=== PATIENT | male | born 1985 | race Two or more races ===

== ENCOUNTER 2023-02-13 09:23 | Outpatient (AMB) | payer MEDICAID, SELFPAY ==
--- NOTE | 2023-02-13 09:48 | A.OFFVIS_ITS ---
Intake Vital Signs 02/13/23 09:51 Height 5 ft 7 in Weight 253 lb BMI 39.6 BP 128/72 Blood Pressure Location Lt brachial Position Sitting Pulse 74 Pulse Source Pulse Oximeter Pulse Oximetry (%) 98 Oxygen Delivery Method Room Air Intake Visit Reasons: [employer]: R/O VETO - Confirmed Intake Note: NPV for VETO Chart Computer Required: No Allergies No Known Allergies Allergy (Verified 02/13/23 09:48) HPI HPI Comments History of Present Illness Details 37 y/o male patient presents with his wi fe for new in-person visit for sleep consultation. Pt reports snoring and gasping arousals. He has difficulty falling asleep and staying sleep. He wakes up very frequently, wakes up about 10 times or more throughout the night. Pt had a in lab sleep study done when he was a teenager, but he did not follow up the result . He does not have routine sleep schedule, watching TV until he gets tired. He also vapes, 3000 puffs for 5 days. He gained more than 100 lb since the last sleep study (It was 20 years ago). Sleep questionnaire: Have you ever been diagnosed with a sleep disorder? No. Have you ever had a sleep study in the past? In lab sleep study when he was a teenager but can't remember the result. He did not follow up. Have you ever been treated for a sleep disorder? No. Do you take medications for a sleep disorder? Melatonin occaionally. Do you snore? Yes. Do you wake up gasping at night? Yes, Do you have episodes of apneas? Yes. If yes, are they witnessed? Yes, by his . Do you have episodes of nocturnal chest pain or dyspnea? Yes. Do you have difficulty initiating sleep? Yes. Do you have difficulty maintaining sleep? Yes. Do you wake up tired? Yes. Do you have headaches upon awakening? No. Do you wake up with dry mouth or throat? Yes Do you have GERD? Yes. Do you have nocturia? Yes. Do you have nocturnal leg cramps? No. Do you have symptoms of restless legs? Yes. Do you act out your dreams? Yes, fights in his dream. Sleep hygiene questionnaire: What is your usual sleep routine? Usual bedtime is at N/A. ; Usual wake up time is at 7 am. Do you take naps? Yes. Is your sleep environment cool, dark, and quiet? Yes. Do you exercise? Yes. Do you take caffeine or other stimulants? No. Do you use electronics in bed? Yes, watches TV until he gets tired. What is your work schedule? N/A Hypersomnolence questionnaire: Do you have daytime tiredness or fatigue? Yes. Do you easily fall asleep when inactive? Yes. Have you ever had episodes of sudden weakness? No. Have you ever had episodes of sudden weakness associated with strong emotions? No. PFSH Social History (Updated 02/13/23 @ 09:51 by Yu Kendall CMA) Alcohol intake: current Tobacco use type: Smokeless Tobacco Review of Systems Const All systems reviewed & are unremarkable except as noted in HPI and below ENT Reports Normal hearing present Neuro Reports Normal hearing present Physical Exam Vital Signs: Last Vital Signs Pulse 74 02/13/23 09:51 BP 128/72 02/13/23 09:51 Pulse Ox 98 02/13/23 09:51 Oxygen Delivery Method Room Air 02/13/23 09:51 BMI result Body Mass Index 39.6 Const General: cooperative and tired appearing Nutritional Appearance: obese Orientation/consciousness: patient oriented x3 Neck Neck: Yes full ROM and Yes supple Resp Effort & Inspection: normal respiratory effort and able to speak in complete sentences Neuro General: patient oriented x3 Cranial nerves: Yes Bilaterally intact EOM present, Yes Midline tongue present, Yes Symmetric palate elevation present, Yes Normal hearing present and Yes Ability to bilaterally rotate head present Cognition (Neuro): normal cognition Gait exam (Neuro): Normal gait present Motor exam (neuro): 5/5 motor strength present throughout, Pronator motor function not present and no tremor noted Psych Appearance: grossly normal Mental Status: mental status grossly normal Speech and movement: Normal speech and movement present Affect: normal affect Attitude: cooperative Assessment & Plan Assessment & Plan (1) Restless legs: Code(s): G25.81 - Restless legs syndrome (2) Excessive daytime sleepiness: Code(s): G47.19 - Other hypersomnia (3) Witnessed episode of apnea: Code(s): R06.81 - Apnea, not elsewhere classified (4) Snoring: Code(s): R06.83 - Snoring Plan Pt is advised to undergo home sleep study to assess for sleep apnea. Will f/u with pt after study to discuss results and appropriate treatment options. Sleep hygiene education provided. Advised patient to have routine sleep schedule, goes to bed at 11 pm and stop watching TV and vaping from 9 pm. Increase physical activity. Walking daily for 30 min. Advised patient to try melatonin 3 mg qHS with magneisum and calicum. Try ferrrous sulfate 325 mg q every other day with vitamin C 500 mg daily. Pt to call with any worsening concerns or questions. Orders: Orders RT home sleep study Today G47.19 - Other hypersomnia, R06.81 - Apnea, not elsewhere classified, R06.83 - Snoring Medications: New melatonin 3 mg PO BEDTIME 30 days 30 tabs 5RF sleep ferrous sulfate 325 mg PO Q OTHER DAY 30 days 15 tabs 5RF ascorbic acid (vitamin C) 500 mg PO DAILY 30 days 30 tabs 5RF Coding Level of Care Code New Pt Level 4 (03739) Diagnoses Restless legs G25.81 Excessive daytime sleepiness G47.19 Witnessed episode of apnea R06.81 Snoring R06.83
[2023-02-13 09:51] VITALS: BP 128/72; PULSE 74; O2SAT 98; BMI 39.6
== END 2023-02-13 10:32 | disposition home or self-care (01) ==
PROVIDERS: PCP Internal Medicine; Visit Provider Nurse Practitioner Family
DX: G25.81 Restless legs syndrome (principal); G47.19 Other hypersomnia; R06.81 Apnea, not elsewhere classified; R06.83 Snoring
CPT/HCPCS: 99204

== ENCOUNTER → 2023-02-13 09:23 | Outpatient (BNVA) | payer MEDICAID, SELFPAY | PROVIDERS: PCP Internal Medicine; Visit Provider Nurse Practitioner Family | DX: G47.19 Other hypersomnia (principal); R06.83 Snoring; R06.81 Apnea, not elsewhere classified; G25.81 Restless legs syndrome; F17.290 Nicotine dependence, other tobacco product, uncomplicated | CPT/HCPCS: 99212 ==